=== PATIENT | female | born 1965 ===

== ENCOUNTER 2022-09-24 07:59 | Outpatient (CLI) | payer OTHER | END 2022-09-24 15:07 | disposition home or self-care (01) | LOC: LAB 07:59 | PROVIDERS: ATTEND Orthopaedic Surgery | DX: D64.9 Anemia, unspecified (principal); E88.9 Metabolic disorder, unspecified; D68.8 Other specified coagulation defects; N39.0 Urinary tract infection, site not specified; A49.02 Methicillin resistant Staphylococcus aureus infection, unspecified site; I10 Essential (primary) hypertension; I49.9 Cardiac arrhythmia, unspecified; Z76.89 Persons encountering health services in other specified circumstances; M25.511 Pain in right shoulder; M25.112 Fistula, left shoulder ==

== ENCOUNTER → 2025-06-29 09:11 | Outpatient (CLI) | payer OTHER | END | disposition home or self-care (01) | LOC: LAB 09:11 | PROVIDERS: ATTEND Orthopaedic Surgery | DX: E55.9 Vitamin D deficiency, unspecified (principal); E56.1 Deficiency of vitamin K ==

== ENCOUNTER → 2025-07-26 06:44 | Outpatient (CLI) | payer OTHER ==
[~2025-07-26] VITALS: Ht 160 cm; Wt 88.9 kg
[2025-07-26 07:37] VITALS: BP 132/82
[2025-07-26 08:19] LABS: BASO % 0.3 % (0.1-1.2); EOS # 0.11 (0.04-0.54); EOS % 1.7 % (0.7-7.0); LYMPH # 2.47 (1.18-3.74); LYMPH % 39.3 % (19.3-53.1); MEAN PLATELET VOLUME 10.60 fl (9.4-12.4); MONO # 0.45 (0.24-0.82); MONO % 7.2 % (4.7-12.5); NEUT # 3.22 (1.56-6.13); NEUT % 51.2 % (34.0-71.1); RED CELL DISTRIBUTION WIDTH 12.2 % (11.6-14.4)
[2025-07-26 08:52] LABS: INR 0.99
[2025-07-26 08:56] LABS: URINE APPEARANCE Clear; URINE BILIRRUBIN Negative (NEGATIVE); URINE BLOOD Negative; URINE COLOR Yellow; URINE GLUCOSE Negative (NEGATIVE); URINE KETONE Negative (NEGATIVE); URINE LEUKOCYTE Trace; URINE NITRATE Negative; URINE PROTEIN Negative (NEGATIVE); URINE UROBILINOGEN 0.2 E.U./dl
[2025-07-26 08:57] LABS: URINE BACTERIA 1017.5 uL (0.0-1933); URINE EPITHELIAL CELLS 45.6 uL (0.0-38.8); URINE RBC 2.0 uL (0.0-20.8); URINE WBC 30.1 uL (0.0-23.2)
[2025-07-26 08:58] LABS: URINE CAST 0.00 uL (0.0-1.40)
[2025-07-26 09:09] LABS: ALT/SGPT 39.0 U/L (12-78); AST/SGOT 20.0 U/L (15-37); BILIRUBIN TOTAL 0.8 mg/dL (0.3-1.2); BUN CREA RATIO 21.0 (7.0-25.0); CREATININE SERUM 0.78 mg/dL (0.55-1.02); GFR 74.83; GLOBULINA 3.2 G/DL (2.4-3.5); GLUCOSE FASTING 99.0 mg/dL (65-100); OSMOLALITY SERUM 284.0 MOSM/KG (275-295)
[2025-07-26 09:19] LABS: COL EPI 118 SECONDS (82-175)
== END | disposition home or self-care (01) ==
LOC: EKG 06:44
PROVIDERS: ATTEND Orthopaedic Surgery
DX: D64.9 Anemia, unspecified (principal); E88.9 Metabolic disorder, unspecified; D68.8 Other specified coagulation defects; N39.0 Urinary tract infection, site not specified; Z22.322 Carrier or suspected carrier of Methicillin resistant Staphylococcus aureus; E11.8 Type 2 diabetes mellitus with unspecified complications; I10 Essential (primary) hypertension

== ENCOUNTER 2025-07-26 08:30 | Outpatient (CLI) | payer OTHER | END 2025-07-26 09:00 | disposition home or self-care (01) | LOC: RAD 08:30 | PROVIDERS: ATTEND Orthopaedic Surgery | DX: R93.6 Abnormal findings on diagnostic imaging of limbs (principal); M17.0 Bilateral primary osteoarthritis of knee; Z76.89 Persons encountering health services in other specified circumstances ==

== ENCOUNTER 2025-08-04 12:15 | Inpatient (IN) | payer OTHER ==
[~2025-08-04] VITALS: Ht 160 cm; Wt 88.9 kg
[2025-08-04] MEDS ORDERED: LOSARTAN POTAS100 MG (13:46)
[2025-08-04] MEDS ORDERED: ALDACTONE25 MG (13:47)
[2025-08-04] MEDS ORDERED: CRESTOR40 MG (13:47)
[2025-08-04 14:04] VITALS: BP 152/82
[2025-08-10] MEDS ORDERED: BUPIVACAINE HCL/MPF 0.5% 30ML VIAL ONE (11:11)
[2025-08-10] MEDS ORDERED: EPINEPHRINE HCL/PF 1 MG/ML AMPUL IR ONE (12:15)
[2025-08-10] MEDS ORDERED: LIDOCAINE HCL 1%/EPINEPHRINE 20ML VIAL IJ ONE (12:15)
[2025-08-10] MEDS ORDERED: VANCOMYCIN HCL 1,000 MG VIAL IR ONE (12:15)
[2025-08-10] MEDS ORDERED: BUPIVACAINE HCL/PF 0.25% 30ML VIAL InF ONE (12:15)
[2025-08-10] MEDS ORDERED: POLYMYXIN B SULFATE 500,000 U VIAL IR ONE ×2 (12:15)
[2025-08-10] MEDS ORDERED: PANTOPRAZOLE SODIUM 40 MG TABLET.DR PO SCH (12:19)
[2025-08-10] MEDS ORDERED: CEFOXITIN SODIUM 2,000 MG VIAL IV ONE (12:30)
[2025-08-10] MEDS ORDERED: ONDANSETRON 4 MG TAB.RAPDIS PO PRN (12:30)
[2025-08-10] MEDS ORDERED: TRAMADOL HCL 50 MG TABLET PO PRN (12:30)
[2025-08-10] MEDS ORDERED: MORPHINE SULFATE 4 MG/ML VIAL IV ONE (12:30)
[2025-08-10] MEDS ORDERED: PROMETHAZINE HCL 50 MG/ML AMPUL IM PRN (12:30)
[2025-08-10] MEDS ORDERED: SODIUM CHLORIDE 0.45 % 1,000 ML IV SCH (12:30)
[2025-08-10] MEDS ORDERED: ONDANSETRON HCL 2 MG/ML VIAL IV PRN (12:30)
[2025-08-10] MEDS ORDERED: ACETAMINOPHEN 325 MG TABLET PO SCH (13:00)
[2025-08-10] MEDS ORDERED: KETOROLAC TROMETHAMINE 10 MG TABLET PO SCH (13:00)
[2025-08-10] MEDS ORDERED: CEFAZOLIN SODIUM 1,000 MG VIAL ONE (16:02)
[2025-08-10] MEDS ORDERED: CEFAZOLIN SODIUM 1,000 MG VIAL IV SCH (17:00)
[2025-08-10] MEDS ORDERED: CELECOXIB 200 MG CAPSULE PO SCH (17:00)
[2025-08-10 17:55] VITALS: BP 124/72; O2SAT 98
[2025-08-10 19:48] VITALS: BP 131/81; O2SAT 97
[2025-08-11 01:16] VITALS: BP 116/76; O2SAT 97
[2025-08-11 07:47] LABS: BASO % 0.3 % (0.1-1.2); EOS # 0.10 (0.04-0.54); EOS % 1.1 % (0.7-7.0); LYMPH # 1.78 (1.18-3.74); LYMPH % 19.2 % (19.3-53.1); MEAN PLATELET VOLUME 11.00 fl (9.4-12.4); MONO # 0.71 (0.24-0.82); MONO % 7.7 % (4.7-12.5); NEUT # 6.63 (1.56-6.13); NEUT % 71.4 % (34.0-71.1); RED CELL DISTRIBUTION WIDTH 12.4 % (11.6-14.4)
[2025-08-11 08:00] VITALS: BP 153/82; O2SAT 97
[2025-08-11] MEDS ORDERED: LOSARTAN POTASSIUM 100 MG TABLET PO SCH (09:00)
[2025-08-11] MEDS ORDERED: RIVAROXABAN 10 MG TAB PO SCH (09:00)
[2025-08-11 14:37] LABS: COVID-19 AG NEGATIVE (NEGATIVE)
[2025-08-11 14:58] LABS: ALT/SGPT 30.0 U/L (12-78); AST/SGOT 19.0 U/L (15-37); BILIRUBIN TOTAL 1.2 mg/dL (0.3-1.2); BUN CREA RATIO 15.0 (7.0-25.0); CREATININE SERUM 0.79 mg/dL (0.55-1.02); GFR 73.74; GLOBULINA 3.3 G/DL (2.4-3.5); GLUCOSE FASTING 135.0 mg/dL (65-100); OSMOLALITY SERUM 274.0 MOSM/KG (275-295)
[2025-08-11 16:00] VITALS: BP 147/84; O2SAT 99
[2025-08-12 01:19] VITALS: BP 123/79; O2SAT 98
[2025-08-12 07:43] LABS: BASO % 0.2 % (0.1-1.2); EOS # 0.22 (0.04-0.54); EOS % 2.3 % (0.7-7.0); LYMPH # 1.53 (1.18-3.74); LYMPH % 16.1 % (19.3-53.1); MEAN PLATELET VOLUME 10.70 fl (9.4-12.4); MONO # 0.72 (0.24-0.82); MONO % 7.6 % (4.7-12.5); NEUT # 7.01 (1.56-6.13); NEUT % 73.5 % (34.0-71.1); RED CELL DISTRIBUTION WIDTH 12.5 % (11.6-14.4)
[2025-08-12 08:00] VITALS: BP 158/91; O2SAT 97
[2025-08-12] MEDS ORDERED: SENNA/DOCUSATE SODIUM 1 TAB TABLET PO SCH (09:00)
[2025-08-12 17:46] VITALS: BP 131/81; O2SAT 98
[2025-08-13 00:06] VITALS: BP 128/66; O2SAT 99
[2025-08-13 08:33] VITALS: BP 133/81; O2SAT 98
== END 2025-08-13 14:43 | DRG 470 ==
LOC: SURH 08-10 07:00 → O/R 08-10 07:00 → SURH 08-10 11:30
PROVIDERS: ADMIT Orthopaedic Surgery; ATTEND Orthopaedic Surgery
PROC: 0SRD0J9 Replacement of Left Knee Joint with Synthetic Substitute, Cemented, Open Approach (ICD-10-PCS; principal; 2025-08-10 11:30)
DX: M17.12 Unilateral primary osteoarthritis, left knee (principal); M85.662 Other cyst of bone, left lower leg; I10 Essential (primary) hypertension; Z88.0 Allergy status to penicillin; J45.909 Unspecified asthma, uncomplicated; D64.89 Other specified anemias